=== PATIENT | female | born 1965 | race Caucasian/White ===

== ENCOUNTER 2021-11-26 06:10 | Observation (INO) ==
--- NOTE | 2021-10-16 10:49 | PAT Medication Instructions ---
Medication Instructions Date of Service October 16, 2021 Home Medications atorvastatin 10 mg tablet 10 mg PO QPM budesonide-formoterol HFA 160 mcg-4.5 mcg/actuation aerosol inhaler (Symbicort) 2 puffs INH BID bupropion HCl 200 mg tablet,12 hr sustained-release 200 mg PO QAM fenofibrate nanocrystallized 48 mg tablet 48 mg PO QAM levothyroxine 100 mcg capsule 100 mcg PO QAM metformin 500 mg tablet 250 mg PO BID montelukast 10 mg tablet 10 mg PO QPM oxybutynin chloride 5 mg tablet,extended release 24 hr 5 mg PO QAM pantoprazole 40 mg tablet,delayed release 40 mg PO QAM tiotropium bromide 1.25 mcg/actuation mist for inhalation (Spiriva Respimat) 2 puffs INH QAM ascorbic acid (vitamin C) 500 mg tablet (Vitamin C) 500 mg PO QAM biotin 1 mg capsule 1 mg PO QAM cholecalciferol (vitamin D3) 50 mcg (2,000 unit) capsule (Vitamin D3) 50 mcg PO QAM cyanocobalamin (vitamin B-12) 1,000 mcg capsule 1,000 mcg PO QAM gabapentin 300 mg capsule 300 mg PO TID interferon beta-1a 30 mcg/0.5 mL intramuscular pen injector (Avonex) 30 mcg IM WK zinc 50 mg capsule 50 mg PO QAM Continue as directed interferon beta-1a 30 mcg/0.5 mL intramuscular pen injector (Avonex) 30 mcg IM WK STOP taking 2 weeks before surgery biotin 1 mg capsule 1 mg PO QAM STOP taking 48 hours before surgery fenofibrate nanocrystallized 48 mg tablet 48 mg PO QAM DO NOT take the morning of surgery metformin 500 mg tablet 250 mg PO BID oxybutynin chloride 5 mg tablet,extended release 24 hr 5 mg PO QAM ascorbic acid (vitamin C) 500 mg tablet (Vitamin C) 500 mg PO QAM cholecalciferol (vitamin D3) 50 mcg (2,000 unit) capsule (Vitamin D3) 50 mcg PO QAM cyanocobalamin (vitamin B-12) 1,000 mcg capsule 1,000 mcg PO QAM zinc 50 mg capsule 50 mg PO QAM Take morning of surgery With a small sip of water, OTHERWISE NOTHING TO EAT OR DRINK AFTER MIDNIGHT: budesonide-formoterol HFA 160 mcg-4.5 mcg/actuation aerosol inhaler (Symbicort) 2 puffs INH BID bupropion HCl 200 mg tablet,12 hr sustained-release 200 mg PO QAM levothyroxine 100 mcg capsule 100 mcg PO QAM pantoprazole 40 mg tablet,delayed release 40 mg PO QAM tiotropium bromide 1.25 mcg/actuation mist for inhalation (Spiriva Respimat) 2 puffs INH QAM gabapentin 300 mg capsule 300 mg PO TID Take evening before surgery atorvastatin 10 mg tablet 10 mg PO QPM budesonide-formoterol HFA 160 mcg-4.5 mcg/actuation aerosol inhaler (Symbicort) 2 puffs INH BID metformin 500 mg tablet 250 mg PO BID montelukast 10 mg tablet 10 mg PO QPM gabapentin 300 mg capsule 300 mg PO TID Other Notes If you have any questions please call us at [phone] or [phone] or [phone] or [phone]
--- NOTE | 2021-10-19 12:33 | Anesthesiology Consultation ---
Date of Service October 19, 2021 Assessment & Plan (1) Encounter for pre-operative examination: - neurology pre-op clearance. - cervical levels planned for surgery. Message left for Emmy at Dr. Nova's office. - neurology office visit 01/06/2020 [place]: "...unclear if she received the full workup to rule out MS mimics given minimal disease seen on MRI brain and C-spine from 08/2019 that were reviewed in office today. She was diagnosed when she was 52 yo and denies ever having symptoms classic for MS such as optic neuritis, numbness/tingling in a single extremity or hemiparesis/hemianesthesia, no sensory level despite small spinal cord lesion. Her workup was completed initially for chronic neck/back pain and imaging findings were incidental, so unclear if she actually has (active) MS as one would expect a much more promin ent presentation in her age group with quick transition to SPMS or PPMS. - MELBA for lab results from prior LP and workup for MS mimics completed at [facility] [place] - continue tecfidera 240mg daily with aspirin 81mg daily to help with flushing for now while awaiting these results - will need CBC/CMP checked depending on when this was last done - discussed with her the importance of using cooling methods, energy conservation and non-pharmacological methods such as daily exercise to help with her fatigue. Could consider trial of provigil or amantadine in the future. Would also recommend that she works with her therapist on depression control as this is likely also contributing to her fatigue. - will check B12/TSH for ongoing fatigue and memory issues. Will check vitamin D 25OH to r/o deficiency (not currently on a vitamin D supplement despite MS diagnosis)... - will repeat MRI brain w/ and w/o, as well as MRI C-spine w/ and w/o in February 2020 to see if there has been any progression of disease - once we obtain the prior workup, will make sure she has been worked up for MS mimics and discuss that given her age (54yo) we can continue on DMT treatment vs discuss coming off at 56yo if no new lesions noted on imaging over the next 1.5 years - referral for formal neuropsych testing given ongoing memory issues # Neuropathy: noted to have stocking glove neuropathy symptoms on exam, most likely from known diabetes - will check A1c to determine her glucose control RTC in 3 months after repeat imaging and further outside records obtained..." - COVID screening: Per assessment on 10/19/2021: Travel screen negative, no known COVID-19 positive contacts or current COVID-19 related symptoms in past 2 weeks. Patient vaccinated. Surgeon arranging preop COVID testing, scheduled 11/22/2021. Awaiting results. Chart Review Chart Review: Pending: Refer to Additional Notes / Consult section and Patient seen in Pre Admission Testing Teaching & Discussion Pre-Anesthesia Teaching/Discussion Notes: Instructed NPO after midnight before surgery, except medications with 15 cc of water. Medication instructions provided according to the PAT guidelines. History Surgery Operation Date: 11/26/21 07:45 Proposed Procedures p Anterior Cervical Discectomy Fusion - Isaias Nova DO Height/Weight Height: 5 ft 6 in Weight: 97.1 kg Allergies Allergy/AdvReac Type Severity Reaction Status Date / Time duloxetine [From Cymbalta] AdvReac Unknown "FELT Verified 09/28/21 12:04 STRANGE" PAPER TAPE Allergy Severe HIVES Uncoded 09/28/21 12:04 Medications Home Medications Medication Instructions Recorded Confirmed Last Taken atorvastatin 10 mg tablet 10 mg PO QPM 01/06/20 09/28/21 Unknown budesonide-formoterol HFA 160 2 puffs INH BID 01/06/20 09/28/21 Unknown mcg-4.5 mcg/actuation aerosol inhaler (Symbicort) bupropion HCl 200 mg tablet,12 hr 200 mg PO QAM 01/06/20 09/28/21 Unknown sustained-release fenofibrate nanocrystallized 48 mg 48 mg PO QAM 01/06/20 09/28/21 Unknown tablet levothyroxine 100 mcg capsule 100 mcg PO QAM 01/06/20 09/28/21 Unknown metformin 500 mg tablet 250 mg PO BID tab 01/06/20 09/28/21 Unknown montelukast 10 mg tablet 10 mg PO QPM 01/06/20 09/28/21 Unknown oxybutynin chloride 5 mg 5 mg PO QAM 01/06/20 09/28/21 Unknown tablet,extended release 24 hr pantoprazole 40 mg tablet,delayed 40 mg PO QAM 01/06/20 09/28/21 Unknown release tiotropium bromide 1.25 2 puffs INH QAM 01/06/20 09/28/21 Unknown mcg/actuation mist for inhalation (Spiriva Respimat) ascorbic acid (vitamin C) 500 mg 500 mg PO QAM 09/28/21 09/28/21 Unknown tablet (Vitamin C) biotin 1 mg capsule 1 mg PO QAM 09/28/21 09/28/21 Unknown cholecalciferol (vitamin D3) 50 50 mcg PO QAM 09/28/21 09/28/21 Unknown mcg (2,000 unit) capsule (Vitamin D3) cyanocobalamin (vitamin B-12) 1,000 mcg PO QAM 09/28/21 09/28/21 Unknown 1,000 mcg capsule gabapentin 300 mg capsule 300 mg PO TID 09/28/21 09/28/21 Unknown interferon beta-1a 30 mcg/0.5 mL 30 mcg IM WK 09/28/21 09/28/21 Unknown intramuscular pen injector (Avonex) zinc 50 mg capsule 50 mg PO QAM 09/28/21 09/28/21 Unknown Past Medical History Medical History (Updated 10/22/21 @ 17:25 by Naomi Hess PA-C) Anxiety Asthma controlled, stable per pt, last rescue inhaler > 1 yr ago Chronic back pain Depression Diabetes mellitus, type 2 NIDDM Hiatal hernia Hyperlipidemia Hypothyroidism Migraine HX Multiple sclerosis F/U DR JAYLENE PARKER-stable per pt Urgency of urination Patient denies h/o stroke, seizures, heart attack, heart failure, HTN, blood clots or blood transfusions. Exercise / Class Metabolic Activity III < 4 Walking/Shop/Light housework (ambulates with cane, denies CP or SOB) Past Family History Family History Father Asthma Emphysema, unspecified Mother Cancer Grandmother (Maternal) Cancer Sister Thyroid cancer Past Surgical History Surgical History (Updated 10/19/21 @ 12:39 by Naomi Hess PA-C) History of colonoscopy 2017 History of esophagogastroduodenoscopy (EGD) History of foot surgery plantar fascitis S/P carpal tunnel release S/P section X 3 S/P hysterectomy S/P medial meniscal repair Past Anesthesia History No Hx of Anesthesia Complications and No Family Hx of Anesthesia Complications History of PONV No Hx of PONV and Hx of Motion Sickness STOP BANG Total 1 Social History Smoking Status: Never smoker Do You Dip or Chew Tobacco: No Hx Alcohol Use: Yes alcohol intake frequency: other Alcohol Intake Frequency Comment: occ Hx Substance Use: No Review of Systems Snoring, denies witnessed apneas. Sleep study negative for sleep apnea. Occasional reflux. Patient denies chest pain, shortness of breath, dyspnea on exertion, fever, chills, cough, wheezing, or palpitations. Physical Exam Vital Signs Vitals BP 110/68 P 89 TEMP 98.5 SP02 96% on RA RESP 17 Physical Full cervical extension range of motion without pain Full TMJ range of motion TMD 3.5 finger breaths Mallampati Score 3 Dentition: intact, several missing molars upper and lower bilat; denies chipped teeth, caps/crowns, implants or bridges Lungs: normal respiratory effort. Clear throughout to auscultation, no adventitious breath sounds Cardiac: regular rate and rhythm, no murmurs noted Carotid arteries: negative bruit bilat Extremities: no distal extremity edema Lab Results Anesthesia Preop Results Results Anesthesia Widget: WBC 9.57 K/uL (4.8-10.8) 10/19/21 Hgb 11.7 g/dL (12.0-16.0) L 10/19/21 Hct 36.7 % (37-47) L 10/19/21 Plt 418 K/uL (130-400) H 10/19/21 Na 142 mmol/L (136-145) 10/19/21 K 4.8 mmol/L (3.5-5.1) 10/19/21 Cl 107 mmol/L (98-107) 10/19/21 CO2 29 mmol/L (21-32) 10/19/21 BUN 17 mg/dl (6-23) 10/19/21 Creat 1.04 mg/dl (0.6-1.2) 10/19/21 Glucose Level 81 mg/dl (70-99(Fasting)) 10/19/21 PT 10.4 Seconds (9.0-12.0) 10/19/21 PTT 24.5 Seconds (21.0-31.0) 10/19/21 INR 1.0 (0.9-1.1) 10/19/21 Urine Color Yellow 10/19/21 Urine Appearance Clear (Clear) 10/19/21 Urine pH 7.0 (4.5-7.5) 10/19/21 Urine Specific [place] 1.009 (1.000-1.030) 10/19/21 Urine Protein Negative (Negative) 10/19/21 Urine Glucose (UA) Negative (Negative) 10/19/21 Urine Ketones Negative (Negative) 10/19/21 Urine Blood Negative (Negative) 10/19/21 Urine Nitrite Negative (Negative) 10/19/21 Urine Bilirubin Negative (Negative) 10/19/21 Urine Urobilinogen Negative (Negative) 10/19/21 Urine Leukocyte Esterase Negative (Negative) 10/19/21 Blood Type A Positive 10/19/21 Antibody Screen NEGATIVE 10/19/21 Testing Electrocardiogram Date: 10/19/21 Chest X-Ray Date: 10/19/21 FINDINGS: Cardiomediastinal and hilar silhouettes are within normal limits. No pneumothorax, pleural effusion, airspace consolidation or overt pulmonary edema. Bones appear grossly intact. IMPRESSION: No acute process.
[~2021-11-26 06:10] MED LIST: ACETAMINOPHEN 500 MG TAB PO SCH; CeleBREX 200 MG CAP PO SCH; GABAPENTIN 600 MG DOSE PO SCH; LR 15ML/HR IV SCH; ceFAZolin 2000MG 2,000 MG/15 ML SYR IV SCH
[2021-11-26] MEDS ORDERED: ceFAZolin 330 MG/ML 1 GM VIAL ONE (07:18)
[2021-11-26] MEDS ORDERED: PROPOFOL IV EMULSION 10 MG/ML 20 ML VIAL IV ONE ×2 (07:27→09:07)
[2021-11-26] MEDS ORDERED: LIDOCAINE 2% MPF LOCAL 5 ML VIAL INFIL ONE (07:27)
[2021-11-26] MEDS ORDERED: fentaNYL citrate 100 MCG/2 ML VIAL ONE (07:28)
--- NOTE | 2021-11-26 07:31 | History & Physical Bridge Note ---
Date of Service November 26, 2021 History & Physical Bridge Note I have examined the patient, reviewed the History & Physical and in the interval since the performance of the History & Physical I have noted the following changes of clinical significance: no changes noted
--- NOTE | 2021-11-26 07:32 | History & Physical Report ---
Date of Service November 26, 2021 Assessment & Plan (1) Cervical stenosis of spinal canal: Plan: C5-C7 anterior cervical discectomy and fusion History of Present Illness Chief Complaint: Neck and arm pain Primary Care Provider: Citlali Montano This is a 56-year-old female who presents with worsening neck and arm pain. Fa iling course of nonoperative care is here for urgent convention. Allergies Allergy/AdvReac Type Severity Reaction Status Date / Time duloxetine [From Cymbalta] AdvReac Unknown "FELT Verified 11/26/21 06:27 STRANGE" PAPER TAPE Allergy Severe HIVES Uncoded 11/22/21 07:57 Home Medications Medication Instructions Recorded Confirmed Type atorvastatin 10 mg tablet 10 mg PO QPM 01/06/20 11/26/21 History budesonide-formoterol HFA 160 2 puffs INH BID 01/06/20 11/26/21 History mcg-4.5 mcg/actuation aerosol inhaler (Symbicort) bupropion HCl 200 mg tablet,12 hr 200 mg PO QAM 01/06/20 11/26/21 History sustained-release (Wellbutrin SR) fenofibrate nanocrystallized 48 mg 48 mg PO QAM 01/06/20 11/26/21 History tablet (Tricor) levothyroxine 100 mcg capsule 100 mcg PO QAM 01/06/20 11/26/21 History (Tirosint) metformin 500 mg tablet 250 mg PO BID tab 01/06/20 11/26/21 History montelukast 10 mg tablet 10 mg PO QPM 01/06/20 11/26/21 History oxybutynin chloride 5 mg 5 mg PO QAM 01/06/20 11/26/21 History tablet,extended release 24 hr (Ditropan XL) pantoprazole 40 mg tablet,delayed 40 mg PO QAM 01/06/20 11/26/21 History release tiotropium bromide 1.25 2 puffs INH QAM 01/06/20 11/26/21 History mcg/actuation mist for inhalation (Spiriva Respimat) ascorbic acid (vitamin C) 500 mg 500 mg PO QAM 09/28/21 11/26/21 History tablet (Vitamin C) biotin 1 mg capsule 1 mg PO QAM 09/28/21 11/26/21 History cholecalciferol (vitamin D3) 50 50 mcg PO QAM 09/28/21 11/26/21 History mcg (2,000 unit) capsule (Vitamin D3) cyanocobalamin (vitamin B-12) 1,000 mcg PO QAM 09/28/21 11/26/21 History 1,000 mcg capsule gabapentin 300 mg capsule 300 mg PO TID 09/28/21 11/26/21 History interferon beta-1a 30 mcg/0.5 mL 30 mcg IM WK 09/28/21 11/26/21 History intramuscular pen injector (Avonex) zinc 50 mg capsule 50 mg PO QAM 09/28/21 11/26/21 History Past Med/Surg History Medical History (Updated 11/26/21 @ 07:32 by Isaias Nova DO) Anxiety Asthma controlled, stable per pt, last rescue inhaler > 1 yr ago Chronic back pain Depression Diabetes mellitus, type 2 NIDDM Hiatal hernia Hyperlipidemia Hypothyroidism Migraine HX Multiple sclerosis F/U DR JAYLENE PARKER-stable per pt Urgency of urination Surgical History History of colonoscopy 2017 History of esophagogastroduodenoscopy (EGD) History of foot surgery plantar fascitis S/P carpal tunnel release S/P section X 3 S/P hysterectomy S/P medial meniscal repair Family History Father Asthma Emphysema, unspecified Mother Cancer Grandmother (Maternal) Cancer Sister Thyroid cancer Social History Smoking Status: Never smoker Second Hand Exposure: No; Do You Dip or Chew Tobacco: No; Tobacco Cessation Education Requested by Patient: No Hx Alcohol Use: Yes Hx Substance Use: No Preferred Language: Mauritian Communication Ability: Effective Cellular [employer] Cutter Required: No Beliefs That Will Affect Care: None Current Living Situation: Spouse and Family current occupational status: employed current occupation: [employer] Other Information That Helps Us Care for You: No Feels Safe at Home: Yes Safety Concerns: Feels Safe At This Time Assistive Devices: Cane and Glasses Physical Exam Physical Exam: Patient is alert and oriented Heart regular in rhythm Lungs clear Results & Data ([facility]) Vital Signs (Past 12 Hours) Vital Signs Temp Pulse Resp BP Pulse Ox 11/26/21 06:46 37.0 C 100 H 18 128/84 95
[2021-11-26] MEDS ORDERED: DEXAMETHASONE SOD INJ 4 MG/ML VIAL ONE (08:17)
[2021-11-26] MEDS ORDERED: ROCURONIUM BROMIDE 10 MG/ML 5 ML VIAL IV ONE (08:17)
[2021-11-26] MEDS ORDERED: ONDANSETRON INJ 2 MG/ML 2 ML VIAL ONE ×2 (08:17→09:50)
[2021-11-26] MEDS ORDERED: FLOSEAL HEMOSTATIC MATRIX 10ML TOP ONE (08:24)
[2021-11-26] MEDS ORDERED: MoRPHine SULFATE PF 1 MG/ML 10 ML AMP/VIAL ONE (08:25)
[2021-11-26] MEDS ORDERED: NEOSTIGMINE METHYLSULFATE 1 MG/ML 10ML VIAL ONE (09:07)
[2021-11-26] MEDS ORDERED: LIDOCAINE 2% 2 ML VIAL/AMP(20MG/ML) INFIL ONE (09:07)
[2021-11-26] MEDS ORDERED: GLYCOPYRROLATE 0.2 MG/ML VIAL ONE ×2 (09:07→09:17)
--- NOTE | 2021-11-26 09:11 | Operative Report ---
Post Operative Report Pre & Post Diagnosis Operation Date: 11/26/21 07:45 Pre-Op Diagnosis: Cervical spinal stenosis with radiculopathy Post-Op Diagnosis: Seen I identified the patient and participated in the time-out.: Yes Procedure Operation Date: 11/26/21 07:45 Actual Procedures #1 anterior cervical discectomy with bilateral foraminotomies C5-C6 C6-C7. #2 anterior cervical arthrodesis C5-C6 C6-C7. #3 placement of Spira 6 mm cage filled with I factor at C5-C6 and 7 mm cage filled with I factor at C6-C7. #4 application 5 complete and screws from C5-C7. Surgeon Isaias Nova, DO Net C Developer Tejinder Shelley Estimated Blood Loss 10 Findings See Below The patient is 5 foot 6 inches tall weighing over 96 kg with a BMI in excess of 34. The patient's body habitus did contribute to significant technical difficulty required deeper retractors longer instruments as well as positioning. This at least 50% increased operative time. Specimens None Indications This is a 56-year-old female who presents with above-mentioned diagnosis after failing course of nonoperative care is here for surgical invention. Description of Procedure Patient was met with identified informed consent obtained. Patient was then taken to the operative suite underwent intubation placed in the supine position Thomas table with head in the [place] kettle operator head. All bony prominences well- padded eyes inspected to ensure no external pressure placed upon the. This point the anterior cervical spine was prepped and draped in normal sterile fashion. Incision was then placed along the right anterior aspect of the cervical spine overlying the C6 vertebral body. Blunt dissection with the assistance of bipolar cautery was performed down to and exposing the anterior cervical spine from C5-C7. Self-retaining retractors placed. Then performed a complete discectomy of C5-C6 out to the uncovertebral joints bilaterally. [place] distracting pins were utilized to assist in visualization. Removed all posterior annular fibers longitudinal ligament bilateral foraminotomies performed. The endplates were then burred to subcortical bleeding bone and a 6 mm spiral cage filled I factor tapped in position. Then proceeded to see 6 C7. Again complete discectomy performed out to the uncovertebral's bilaterally. [place] distracting pins again utilized. Removed all posterior annular fibers longitudinal ligament bilateral foraminotomies performed. A 7 mm spiral cage filled I factor tapped in position. Distracting apparatus was removed all anterior osteophytes produce with cortical surface and 5 complete and screws applied with the assistance of fluoroscopy. The incision was then copiously irrigated explored to ensure no damage to surrounding structures remaining bleeding. 10 round CHAD drain inserted. The incision was then closed with 2 Vicryl in a fashion of 4 Monocryl for final skin closure. Steri-Strip sterile dressings placed. Patient waken taken to PACU stable condition. Please note spinal cord monitoring was utilized at the procedure no changes noted. Lastly Tejinder Shelley was present out the entire surgery and while the patient positioning complex portions of the surgery and final skin closure. I attest to the content of the Intraoperative Record and any orders documented therein. Any exceptions are noted below.
[2021-11-26] MEDS ORDERED: ATROPINE SULFATE 0.1 MG/ML 10ML SYR IV PRN (09:38)
[2021-11-26] MEDS ORDERED: PROMETHAZINE HCL 6.25 MG in SODIUM CHLORIDE 0.9% 50 ML IV PRN (09:38)
[2021-11-26] MEDS ORDERED: HYDROmorphone INJ 2 MG/ML SYR/VIAL IV PRN (09:38)
[2021-11-26] MEDS ORDERED: ONDANSETRON INJ 2 MG/ML 2 ML VIAL IV PRN ×2 (09:38→10:52)
[2021-11-26] MEDS ORDERED: ePHEDrine sulfate 50 MG/ML AMP IV PRN (09:38)
--- NOTE | 2021-11-26 09:39 | Fluoroscopy Report ---
FL cervical 2-3V CLINICAL HISTORY: C5-C7 ACDF COMPARISON STUDY: MRI of the cervical spine September 06, 2019. FLUOROSCOPY TIME: 16 seconds. FLUOROSCOPIC IMAGES: FINDINGS: Fluoroscopy was provided during C5-C7 anterior discectomy and fusion. Surgical drain is in place. Endotracheal tube is partially imaged. IMPRESSION: Fluoroscopy provided during C5-C7 anterior discectomy and fusion. ACT 112: Negative or not required by law. Electronically signed by: Wilder Barakat M.D. 11/26/2021 9:37 AM
[2021-11-26] MEDS: fentaNYL citrate 100 MCG/2 ML VIAL IV PRN ×2 (10:00→10:20)
[2021-11-26] MEDS ORDERED: PROMETHAZINE HCL INJ 25 MG/ML 1 ML VIAL ONE (10:05)
[2021-11-26] MEDS ORDERED: SODIUM CHLORIDE 0.9% 50 ML BAG ONE (10:05)
[2021-11-26] MEDS ORDERED: NALOXONE HCL 0.4 MG/1 ML VIAL/CARP IV PRN (10:52)
[2021-11-26] MEDS ORDERED: HYDROmorphone INJ 0.5 MG/0.5 ML SYR IV PRN (10:52)
[2021-11-26] MEDS ORDERED: ONDANSETRON 4 MG OD TAB PO PRN (10:52)
[2021-11-26] MEDS ORDERED: diphenhydrAMINE Capsule 25 MG CAP PO PRN (10:52)
[2021-11-26] MEDS ORDERED: FAMOTIDINE 20 MG TAB PO PRN (10:52)
[2021-11-26] MEDS ORDERED: HYDROmorphone INJ 1 MG/ML SYRINGE IV PRN (10:52)
[2021-11-26] MEDS ORDERED: ALUMINUM/MAGNESIUM SUSP 30 ML UDC PO PRN (10:52)
[2021-11-26] MEDS ORDERED: MAGNESIUM HYDROXIDE SUSP 30 ML UDC PO PRN (10:52)
[2021-11-26] MEDS ORDERED: LORazepam 0.5 MG TAB PO PRN (10:52)
[2021-11-26] MEDS ORDERED: hydrOXYzine HCl 25 MG TAB PO PRN (10:52)
[2021-11-26] MEDS ORDERED: DO NOT ADMINISTER FLU VACCINE PRN (10:52)
[2021-11-26] MEDS ORDERED: PHARMACY GLYCEMIC MGMT CONSULT PRN (10:52)
[2021-11-26] MEDS ORDERED: SOD PHOSPHATE/SOD BIPHOSPHATE ENEMA 132 ML BTL PR PRN (10:52)
[2021-11-26] MEDS ORDERED: bisacodyL 10 MG SUPP PR PRN (10:52)
[2021-11-26] MEDS ORDERED: LORazepam 2 MG/1 ML VIAL IV PRN (10:52)
[2021-11-26] MEDS ORDERED: METOCLOPRAMIDE HCL INJ 5 MG/ML 2 ML VIAL IV PRN (10:52)
[2021-11-26] MEDS ORDERED: traMADol HCL 50 MG TABLET PO PRN (10:52)
[2021-11-26] MEDS ORDERED: ACETAMINOPHEN 1,000 MG/100 ML VIAL IV PRN (10:52)
[2021-11-26] MEDS ORDERED: PROMETHAZINE HCL 12.5 MG in SODIUM CHLORIDE 0.9% 50 ML IV PRN (10:52)
[2021-11-26] MEDS ORDERED: DO NOT ADMINISTER PNEUMOCOCCAL VACCINE PRN (10:52)
[2021-11-26] MEDS ORDERED: ACETAMINOPHEN 500 MG TAB PO PRN (10:52)
[2021-11-26] MEDS ORDERED: RACEPINEPHRINE 2.25% NEBU SOLN 0.5 ML VIAL INH PRN (11:07)
[2021-11-26] MEDS ORDERED: dexAMETHasone 8 MG in SYRINGE 0 ML IV PRN (11:07)
--- NOTE | 2021-11-26 11:09 | Hospitalist Consultation ---
Date of Consultation November 26, 2021 Assessment & Plan (1) Cervical stenosis of spinal canal: POD #0 - anterior cervical discectomy and fusion by Dr. Nova - Pain control, PT/OT, DVT prophylaxis per primary service - Encourage incentive spirometry - AM labs (2) Type 2 diabetes mellitus: Pharm has been consulted for glycemic management - consider A1c in AM since pt unsure when her last one was (3) Diabetic polyneuropathy: (4) Multiple sclerosis: (5) Asthma: (6) Anxiety with depression: Continue other home medications as appropriate. Pt seen and reviewed with collaborating physician, Dr. Sanchez. Plan of care discussed and as outlined above,. Thank you for this consultation. We will continue to follow the patient with you. A member of the [facility] Hospitalist Team is available 03/03 via [employer]. Please don't hesitate to reach out with questions. Salvador Underwood PA-C Supervising Physician Co-Signing Physician Notes I have seen and examined the patient at bedside. I have reviewed the chart and discussed the case with Tamiko WILKS. In summary, this is a 56 year old female with MS, asthma, DM-2 with neuropathy, cervical stenosis who underwent anterior cervical discectomy and fusion today by Dr Nova. Hospitalist service was consulted for medical management. Patient sitting comfortably in bed, on neck collar, fairly comfortable. States pain is coming back. Tolerated clears without issues. Denies nausea, vomiting, shortness of breath. AAO. Incision site clean with CHAD drain with serosanguineous output. Chest clear, heart sounds normal, abdomen benign, no edema. Surgical management including diet, pain management, activities and DVT prophylaxis per primary team. Glycemic pharmacist has been consulted by primary team for diabetes management. Chronic medical conditions stable. Rest as per note above. History of Present Illness Reason for Consultation: Post-operative medical management Requesting Physician: Dr. Isaias Nova Attending Physician: Isaias Nova, DO History of Present Illness This is a 56 y/o female with a PMH of multiple sclerosis, migraines, diabetes with polyneuropathy, asthma, anxiety, depression, and cervical stenosis who underwent anterior cervical discectomy and fusion today by Dr. Nova and for whom we have been consulted to assist with post-operative medical management. Pt is seen sitting up in bed. Reports overall her pain is controlled. She had some nausea initially in recovery but given anti-emetic with relief. No vomiting. Throat feels dry but denies chest pain, palpitations, shortness of breath, cough, KEYES or dizziness. Pt does not routinely check her blood sugars at home. She is unsure when her last A1c was but thinks that it was not that long ago and "they told me it was good." She has chronic polyneuropathy for which she is on gabapentin. She is unsure if any of the neurologic symptoms were related to the cervical stenosis. History of asthma that is well-controlled - cannot recall when she last needed her rescue inhaler. Allergies Allergy/AdvReac Type Severity Reaction Status Date / Time duloxetine [From Cymbalta] AdvReac Unknown "FELT Verified 11/26/21 06:27 STRANGE" PAPER TAPE Allergy Severe HIVES Uncoded 11/22/21 07:57 Home Medications Medication Instructions Recorded Confirmed Type atorvastatin 10 mg tablet 10 mg PO QPM 01/06/20 11/26/21 History budesonide-formoterol HFA 160 2 puffs INH BID 01/06/20 11/26/21 History mcg-4.5 mcg/actuation aerosol inhaler (Symbicort) bupropion HCl 200 mg tablet,12 hr 200 mg PO QAM 01/06/20 11/26/21 History sustained-release (Wellbutrin SR) fenofibrate nanocrystallized 48 mg 48 mg PO QAM 01/06/20 11/26/21 History tablet (Tricor) levothyroxine 100 mcg capsule 100 mcg PO QAM 01/06/20 11/26/21 History (Tirosint) metformin 500 mg tablet 250 mg PO BID tab 01/06/20 11/26/21 History montelukast 10 mg tablet 10 mg PO QPM 01/06/20 11/26/21 History oxybutynin chloride 5 mg 5 mg PO QAM 01/06/20 11/26/21 History tablet,extended release 24 hr (Ditropan XL) pantoprazole 40 mg tablet,delayed 40 mg PO QAM 01/06/20 11/26/21 History release tiotropium bromide 1.25 2 puffs INH QAM 01/06/20 11/26/21 History mcg/actuation mist for inhalation (Spiriva Respimat) ascorbic acid (vitamin C) 500 mg 500 mg PO QAM 09/28/21 11/26/21 History tablet (Vitamin C) biotin 1 mg capsule 1 mg PO QAM 09/28/21 11/26/21 History cholecalciferol (vitamin D3) 50 50 mcg PO QAM 09/28/21 11/26/21 History mcg (2,000 unit) capsule (Vitamin D3) cyanocobalamin (vitamin B-12) 1,000 mcg PO QAM 09/28/21 11/26/21 History 1,000 mcg capsule gabapentin 300 mg capsule 300 mg PO TID 09/28/21 11/26/21 History interferon beta-1a 30 mcg/0.5 mL 30 mcg IM WK 09/28/21 11/26/21 History intramuscular pen injector (Avonex) zinc 50 mg capsule 50 mg PO QAM 09/28/21 11/26/21 History Patient History Medical History Anxiety Asthma controlled, stable per pt, last rescue inhaler > 1 yr ago Chronic back pain Depression Diabetes mellitus, type 2 NIDDM Diabetic polyneuropathy Hiatal hernia Hyperlipidemia Hypothyroidism Migraine HX Multiple sclerosis F/U DR JAYLENE PARKER-stable per pt Urgency of urination Surgical History History of colonoscopy 2017 History of esophagogastroduodenoscopy (EGD) History of foot surgery plantar fascitis S/P carpal tunnel release S/P section X 3 S/P hysterectomy S/P medial meniscal repair Family History Father Asthma Emphysema, unspecified Mother Cancer Grandmother (Maternal) Cancer Sister Thyroid cancer Social History Smoking Status: Never smoker Second Hand Exposure: No; Do You Dip or Chew Tobacco: No; Tobacco Cessation Education Requested by Patient: No Hx Alcohol Use: Yes Hx Substance Use: No Preferred Language: Arabic Communication Ability: Effective [employer] Consultant Required: No Beliefs That Will Affect Care: None Current Living Situation: Spouse and Family current occupational status: employed current occupation: [employer] Other Information That Helps Us Care for You: No Feels Safe at Home: Yes Safety Concerns: Feels Safe At This Time Assistive Devices: Cane and Glasses Review of Systems Review of Systems: All systems reviewed & are unremarkable except as noted in HPI & below Constitutional: no fever, no chills, no sweats and no fatigue Eyes: no diplopia Ear, Nose, Mouth, Throat: no nasal congestion and no nasal discharge Respiratory: no cough, no dyspnea and no wheezing Cardiovascular: no chest pain, no dyspnea on exertion, no palpitations, no syncope and no edema Gastrointestinal: no abdominal pain, no nausea, no vomiting and no diarrhea/loose stools Genitourinary: no dysuria and no hematuria Musculoskeletal: + neck pain Integumentary: no rash and no yellowing of the skin Neurologic: as per Subjective / HPI Physical Exam Constitutional: well developed and well nourished; no acute distress Eyes: + anicteric sclerae Neck: dressing on anterior neck is C/D/I - drain in place with sanguinous drainage noted Respiratory: no respiratory distress and no labored breathing Auscultation: lungs clear to auscultation bilaterally; no rales, no rhonchi and no wheezes Cardiovascular: Rate/Rhythm: regular rate and regular rhythm Vessels: dorsalis pedis pulses present and radial pulses present Extremities: no edema Gastrointestinal (Abdomen): Inspection/Auscultation: normal bowel sounds; abdomen not distended Percussion/Palpation: abdomen soft; abdomen nontender Musculoskeletal: Head/Neck/Chest: normocephalic and head atraumatic Skin: no jaundice Neurologic: moves all extremities; no focal motor deficits Psychiatric: A+Ox3, euthymic affect Results & Data Results & Data ([facility]) Vital Signs (Past 12 Hours) Vital Signs Temp Pulse Pulse Resp BP Pulse Ox 11/26/21 10:30 108 H 14 150/91 H 96 11/26/21 10:20 36.4 C L 104 H 14 146/85 H 90 11/26/21 10:10 110 H 20 142/80 H 94 11/26/21 10:00 113 H 14 149/84 H 95 11/26/21 09:50 113 H 14 133/95 96 11/26/21 09:40 113 H 14 145/80 H 93 11/26/21 09:32 36.5 C 104 H 12 168/92 H 96 11/26/21 06:46 37.0 C 100 H 18 128/84 95 Laboratory Results 11/26/21 11/26/21 06:47 07:12 POC Glucose 104 H SARS-CoV-2, RNA, NAAT NEGATIVE Medications Administered Acetaminophen (Acetaminophen 500 Mg Tab) 1,000 mg PO PREOP CIARRA Stop: 11/26/21 18:00 Last Admin: 11/26/21 07:08 Dose: 1,000 mg Documented by: [id number] Celecoxib (Celebrex 200 Mg Cap) 200 mg PO PREOP CIARRA Stop: 11/26/21 18:00 Last Admin: 11/26/21 07:09 Dose: 200 mg Documented by: [id number] Fentanyl Citrate (Fentanyl Citrate 100 Mcg/2 Ml Vial) 50 mcg IV Q5M PRN PRN Reason: PACU Use Only-Pain Stop: 11/26/21 17:38 Last Admin: 11/26/21 10:20 Dose: 50 mcg Documented by: [id number] Admin: 11/26/21 10:00 Dose: 50 mcg Documented by: [id number] Gabapentin (Gabapentin 600 Mg Dose) 600 mg PO PREOP CIARRA Stop: 11/26/21 18:00 Last Admin: 11/26/21 07:08 Dose: 300 mg Documented by: [id number] Lactated Ringer's (Lr) 1,000 mls @ 15 mls/hr IV .Q24H CIARRA Stop: 11/27/21 05:59 Last Infusion: 11/26/21 07:39 Dose: 0 mls/hr Documented by: [id number] Admin: 11/26/21 07:09 Dose: 15 mls/hr Documented by: [id number] Cefazolin Sodium (Ancef 2000mg) 2,000 mg in 15 mls @ 3.75 mls/min IV PREOP CIARRA; Protocol Stop: 11/26/21 18:00 Last Admin: 11/26/21 08:00 Dose: 3.75 mls/min Documented by: [id number] Promethazine HCl 6.25 mg/ (Sodium Chloride) 50.25 mls @ 204 mls/hr IV ONCE PRN PRN Reason: PACU Use Only-Nausea/Vomiting Stop: 11/26/21 17:38 Last Admin: 11/26/21 10:06 Dose: 204 mls/hr Documented by: [id number] Ondansetron HCl (Ondansetron Inj 2 Mg/Ml 2 Ml Vial) 4 mg IV ONCE PRN PRN Reason: PACU Use Only-Nausea/Vomiting Stop: 11/26/21 17:38 Last Admin: 11/26/21 09:53 Dose: 4 mg Documented by: [id number] Discontinued Medications Cefazolin Sodium (Cefazolin 330 Mg/Ml 1 Gm Vial) Confirm Administered Dose 990 mg .ROUTE .STK-MED ONE Stop: 11/26/21 07:19 Last Admin: 11/26/21 08:24 Dose: 990 mg Documented by: [id number] Miscellaneous ( Floseal Hemostatic Matrix 10ml) 10 ml TOP ONCE ONE Stop: 11/26/21 08:25 Last Admin: 11/26/21 09:05 Dose: 10 ml Documented by: [id number] Promethazine HCl (Promethazine Hcl Inj 25 Mg/Ml 1 Ml Vial) Confirm Administered Dose 25 mg .ROUTE .STK-MED ONE Stop: 11/26/21 10:06 Last Admin: 11/26/21 10:07 Dose: Not Given Documented by: [id number] Sodium Chloride (Sodium Chloride 0.9% 50 Ml Bag) Confirm Administered Dose 50 ml .ROUTE .STK-MED ONE Stop: 11/26/21 10:06 Last Admin: 11/26/21 10:07 Dose: Not Given Documented by: [id number]
--- NOTE | 2021-11-26 11:26 | Anesthesiology Progress Note ---
Date of Service November 26, 2021 Anesthesia Post Procedure Vital Signs Vital Signs: Temp Pulse Pulse Resp BP Pulse Ox 11/26/21 11:18 100 H 20 98 11/26/21 10:30 108 H 14 150/91 H 96 11/26/21 10:20 36.4 C L 104 H 14 146/85 H 90 11/26/21 10:10 110 H 20 142/80 H 94 11/26/21 10:00 113 H 14 149/84 H 95 11/26/21 09:50 113 H 14 133/95 96 11/26/21 09:40 113 H 14 145/80 H 93 11/26/21 09:32 36.5 C 104 H 12 168/92 H 96 11/26/21 06:46 37.0 C 100 H 18 128/84 95 Pain Intensity Neck: Pain Intensity: 6 Transfer of Care Handoff Completed per policy Notes Mental Status: alert / awake / arousable Patient Amnestic to Procedure: Yes Nausea / Vomiting: adequately controlled Pain: adequately controlled Airway Patency, RR, SpO2: stable & adequate BP & HR: stable & adequate Hydration State: stable & adequate Anesthetic Complications: no major complications apparent
[2021-11-26] MEDS: SODIUM CHLORIDE 0.9% 1000ML 1,000 ML IV SCH ×2 (12:04→18:41)
[2021-11-26] MEDS ORDERED: INSULIN HUMAN NPH SC ONE (12:30)
[2021-11-26] MEDS ORDERED: GLUCAGON FOR INJ 1 MG VIAL IM PRN (12:30)
[2021-11-26] MEDS ORDERED: DEXTROSE 50% 50 ML SYRINGE IV PRN (12:30)
[2021-11-26] MEDS ORDERED: CARBOHYDRATES FOR HYPOGLYCEMIA PO PRN (12:30)
[2021-11-26] MEDS ORDERED: GLUCOSE 10 TABS/TUBE PO PRN (12:30)
[2021-11-26] MEDS ORDERED: GLUCOSE 40% GEL 15 GM TUBE PO PRN (12:30)
--- NOTE | 2021-11-26 12:36 | Pharmacy Report ---
Pharmacy Glycemic Short Note 2 - Date of Service November 26, 2021 - Glycemic Short BSG Results (Last 24 hours): 11/26/21 11/26/21 06:47 12:14 POC Glucose 104 H 128 H OUTPATIENT ANTIDIABETIC REGIMEN: * Metformin * HbA1c ordered for tomorrow ASSESSMENT: * 56 yo F with T2DM s/p spinal surgery today with dexamethasone overriden in OR * Will initiate NPH both for a faster onset of action and because likely to cont inue ongoing tomorrow AM due to pharmacokinetic profile that mimics the post- prandial elevations with ongoing dexamethasone qAM ordered * Will intitiate Novolog close to weight-based severe stress estimate PLAN FOR INPATIENT GLYCEMIC CONTROL: * Hold outpatient oral diabetes medication * Basal insulin * NPH 25 units SQ x1 now * Bolus insulin * NovoLog per scale ACHS or Q6hrs while NPO * Goal Range: Low 110 mg/dL - High 140 mg/dL * Correction Factor: 15 mg/dL/unit * Nutritional / Prandial insulin per carb ratio of 1 unit per 7 grams CHO consumed
[2021-11-26] MEDS: INSULIN ASPART PER UNIT SC SCH ×3 (13:21→20:55)
[2021-11-26] MEDS: ceFAZolin 2000MG 2,000 MG/15 ML SYR IV SCH ×2 (16:28→23:55)
[2021-11-26] MEDS: oxyCODONE HCL IR 5 MG TAB (IMMEDIATE RELEASE) PO PRN ×2 (16:39→21:50)
[2021-11-26] MEDS: GABAPENTIN 300 MG CAP PO SCH (20:52)
[2021-11-26] MEDS ORDERED: MONTELUKAST SODIUM 10 MG TABLET PO SCH (21:00)
[2021-11-26] MEDS ORDERED: ATORVASTATIN 10 MG TAB PO SCH (21:00)
[2021-11-26] MEDS ORDERED: DOCUSATE SODIUM/SENNA 50/8.6MG TAB PO SCH (21:00)
[2021-11-26] MEDS ORDERED: FLUTICASONE/VILANTEROL 200/25MCG 14 PUFFS/INHALER INH SCH (21:00)
[2021-11-27] MEDS: SODIUM CHLORIDE 0.9% 1000ML 1,000 ML IV SCH (01:07)
[2021-11-27] MEDS ORDERED: INSULIN ASPART PER UNIT SC ONE (02:00)
[2021-11-27] MEDS ORDERED: POLYETHYLENE (MIRALAX) 17 GM PACK PO SCH (06:00)
[2021-11-27] MEDS ORDERED: LEVOTHYROXINE SODIUM 100 MCG TABLET PO SCH (06:30)
[2021-11-27 06:39] LABS: Basophils # (auto) 0.02 K/uL (0-0.2); Basophils % (auto) 0.2 %; Eosinophils # (auto) 0.11 K/uL (0-0.5); Eosinophils % (auto) 1.2 %; Hematocrit (blood only) 31.7 % (37-47); Hemoglobin 9.7 g/dL (12.0-16.0); Immature Granulocytes # (auto) 0.04 K/uL (0.00-0.02); Immature Granulocytes % (auto) 0.4 %; Lymphocytes # (auto) 1.86 K/uL (1.2-3.4); Lymphocytes % (auto) 20.9 %; Mean Corpuscular Hemoglobin 24.7 pg (25-34); Mean Corpuscular Hgb Conc 30.6 g/dL (32-36); Mean Corpuscular Volume 80.7 fL (80-100); Mean Platelet Volume 9.8 fL (7.4-10.4); Monocytes # (auto) 0.91 K/uL (0.11-0.59); Monocytes % (auto) 10.2 %; Neutrophils # (auto) 5.98 K/uL (1.4-6.5); Neutrophils % (auto) 67.1 %; Platelet Count 306 K/uL (130-400); RDW Coefficient of Variation 16.8 % (11.5-14.5); Red Blood Count 3.93 M/uL (4.2-5.4); White Blood Count 8.92 K/uL (4.8-10.8)
[2021-11-27 06:57] LABS: BUN Creatinine Ratio 11.3 (10-20); Calcium 8.1 mg/dl (8.5-10.1); Creatinine Clr Calc Pharmacy 92.8 ml/min; Est GFR (African American) 96.2 ml/min; Potassium 4.1 mmol/L (3.5-5.1)
[2021-11-27 07:55] LABS: Estimated Average Glucose 128 mg/dl; Hemoglobin A1C 6.1 % (4.5-5.6)
[2021-11-27] MEDS: oxyCODONE HCL IR 5 MG TAB (IMMEDIATE RELEASE) PO PRN (08:11)
[2021-11-27] MEDS ORDERED: INSULIN HUMAN NPH SC SCH (09:00)
[2021-11-27] MEDS ORDERED: dexAMETHasone 6 MG in SYRINGE 0 ML IV SCH (09:00)
[2021-11-27] MEDS ORDERED: CHOLECALCIFEROL 1,000 UNITS 25 MCG TAB PO SCH (09:00)
[2021-11-27] MEDS ORDERED: ZINC SULFATE 220 MG CAPSULE PO SCH (09:00)
[2021-11-27] MEDS ORDERED: PANTOprazole 40 MG TAB PO SCH (09:00)
[2021-11-27] MEDS ORDERED: UMECLIDINIUM BROMIDE 62.5MCG/BLISTER 7 PUFFS/INHALER INH SCH (09:00)
[2021-11-27] MEDS ORDERED: OXYBUTYNIN CHLORIDE XL 5 MG TABCR PO SCH (09:00)
[2021-11-27] MEDS ORDERED: buPROPion SR 100 MG TABCR PO SCH (09:00)
[2021-11-27] MEDS ORDERED: CYANOCOBALAMIN (B-12) 500 MCG TABLET PO SCH (09:00)
[2021-11-27] MEDS ORDERED: NON-FORMULARY MEDICATION (Biotin 1 mg Capsule) PO SCH (09:00)
[2021-11-27] MEDS ORDERED: FENOFIBRATE NANOCRYSTALLIZED 48 MG TABLET PO SCH (09:00)
[2021-11-27] MEDS: INSULIN ASPART PER UNIT SC SCH (09:30)
--- NOTE | 2021-11-27 09:51 | Discharge Summary ---
Date of Service November 27, 2021 Admission HPI Per Admitting Provider This is a 56-year-old female who presents with worsening neck and arm pain. Failing course of nonoperative care is here for urgent convention. Principal Diagnosis Cervical radiculopathy Discharge Data Allergies Allergy/AdvReac Type Severity Reaction Status Date / Time duloxetine [From Cymbalta] AdvReac Unknown "FELT Verified 11/26/21 06:27 STRANGE" PAPER TAPE Allergy Severe HIVES Uncoded 11/22/21 07:57 Consultations 11/26/21 10:52 Consult Hospitalist Routine Procedures Performed Operation Date: 11/26/21 07:45 Actual Procedures p C5-C7 Anterior Cervical Discectomy and Fusion, Spinal Cord Monitoring(Not Applicable) - Isaias Nova DO Ordered Studies 11/26/21 [place] cervical 2-3V Routine Hospital Course (1) Cervical stenosis of spinal canal: Patient 1 anterior cervical discectomy and fusion tolerated this well stable orthopedic for postoperative. Postop day 1 her pain was improved. Swallowing well. No hoarseness. CHAD drain decreasing appropriately. Excellent strength testing. Separately discharged home. Discharge orders instructions from the chart for further review. Total Time Total Time Spent Total Time Spent (In Minutes): 20 minutes Discharge Plan Discharge Items Patient Disposition: Home - Self-Care Reason For Visit: Spinal Stenosis, Cervical Region Discharge Diagnosis: Cervical spinal stenosis with radiculopathy Activity: Per Instructions section Non-emergency contact: Primary Care Provider Call non-emergency contact if: you have any medication questions Follow-up/Referrals: Citlali Montano [Primary Care Provider] - Diet: Regular Addtl Attending Provider Instructions: ACTIVITY RECOMMENDATIONS: SELF CARE INSTRUCTIONS AFTER THORACIC/LUMBAR FUSIONS 1. You may walk to your tolerance. It is good exercise for your legs and back. Expect some back and intermittent leg aches and pains. 2. You may perform "counter-top" level activities (make a sandwich, phylicia with a project, etc.). 3. No bending or lifting of more than 10 pounds or back twisting of any nature (roll like a log when turning in bed). 4. You may ride in a car for 20-30 minutes at a time. No driving until after your first visit with your doctor. 5. Frequent changes of position and restricting sitting to 30 minutes at a time will help limit the amount of back spasms and stiffness you may experience. 6. You may discontinue the use of ambulatory aids (cane, crutches, etc.) once your strength and confidence allow. 7. You may holter scanning technician the shower and let water strike your incision when you arrive home at least once daily. Do not take a tub bath, sit in a hot tub or go into a swimming pool until after your first recheck in the office. SPECIAL CARE INSTRUCTIONS: VERY IMPORTANT TO READ AND REVIEW A. Your surgical incision has been closed with a cosmetic suture under the skin that will dissolve in about 6 weeks. In 14 days, you can use a pair of clean scissors and cut the suture that is left outside of the skin at the ends of your incision. 1. The small skin tapes can be removed 7 days after surgery if they have not fallen off by that point. 2. You may keep the wound open to air as much as possible to promote healing after post-op day number 5 unless told otherwise by your doctor. 3. If you think the wound looks like it is becoming infected (redness or worsening drainage) and/or you are experiencing fever, chill or worsening back pain and muscle spasms, contact the office so that we may evaluate you as soon as possible. B. Complications are uncommon, but please contact us if you have any signs or symptoms of: 1. wound infection (fever higher than 102.5 degrees F, redness, separation of wound, drainage, or increasing pain from the incision) 2. blood clots in legs (pain, swelling, redness and warmth in legs) 3. urinary tract infection (fever higher than 102.5 degrees F, burning upon urination or increased frequency of urination) 4. nerve problems (inability to walk on your toes or heels, numbness, loss of bowel or bladder control) 5. any other symptoms that concern you C. Please call the office at if you have any concerns or questions about your operation or recovery. D. No smoking! Smoking drastically decreases the chance of a solid fusion. E. Do not take any anti-inflammatory medications (Indocin, Advil, Motrin, Aspirin, Naprosyn, etc.) as these may inhibit the chance of a solid fusion. Tylenol is okay to take for pain. MANAGING PAIN AFTER SPINAL SURGERY 1. Narcotic medication is intended for short-term use and will be provided for surgical pain. Surgical pain usually lasts for a period of 4-6 weeks. Narcotic medication includes Percocet, Vicodin, Darvocet, Tylenol #3 or Lortab. 2. Longer-term pain is more appropriately treated with non-narcotic medication such as Tylenol ES. 3. Muscle spasm is not appropriately treated with narcotics. Muscle relaxers such as Soma, Flexeril or Skelaxin can be used along with Tylenol ES. 4. Remember that we all live with some "aches and pains". This is not unusual or uncommon after an injury or as we get older. a. Back pain is expected and may include muscle spasms for 4 to 6 weeks after surgery. The pain should gradually improve. If the pain worsens for no apparent reason, please contact the office. b. Intermittent leg pain may also be experienced and should not be concerned about unless it worsens for no apparent reason. If so, please contact the office. 5. We will provide appropriate medication within the normal guidelines of their prescribed use. We will also be very cautious and aware of potential abuse and extended duration of patients' medication needs. a. Pain medications are for your comfort and to assist with sleep and rest so that the tissue can heal. They are not provided in order to return to normal activity and should not be used through the day. To do so or worsening pain at night can result from ongoing tissue damage and development of tolerance to the prescribed medicine. 6. Please allow 2-3 days to process refills. Prescriptions will not be mailed but must be picked up at the office. FOLLOW UP VISIT: Keep your scheduled follow-up appointment. Any questions, please call the office at . Pending Studies at Discharge: No Stand-Alone Forms: [facility], Smoking Cessation Medications and DC Order Prescriptions: New tramadol 50 mg tablet 50 mg PO Q6H PRN (Reason: pain, moderate) Qty: 30 RF: 0 oxycodone 5 mg tablet 5 mg PO Q6H PRN (Reason: pain, severe) Qty: 30 RF: 0 Continued atorvastatin 10 mg tablet 10 mg PO QPM RF: 0 bupropion HCl [Wellbutrin SR] 200 mg tablet sustained-release 12 hr 200 mg PO QAM RF: 0 montelukast 10 mg tablet 10 mg PO QPM RF: 0 fenofibrate nanocrystallized [Tricor] 48 mg tablet 48 mg PO QAM RF: 0 levothyroxine [Tirosint] 100 mcg capsule 100 mcg PO QAM RF: 0 metformin 500 mg tablet 250 mg PO BID RF: 0 oxybutynin chloride [Ditropan XL] 5 mg tablet extended release 24hr 5 mg PO QAM RF: 0 pantoprazole 40 mg tablet,delayed release (DR/EC) 40 mg PO QAM RF: 0 budesonide-formoterol [Symbicort] 160-4.5 mcg/actuation HFA aerosol inhaler 2 puffs INH BID RF: 0 Spiriva Respimat 1.25 mcg/actuation mist 2 puffs INH QAM RF: 0 Avonex 30 mcg/0.5 mL Pen Injector 30 mcg IM WK RF: 0 gabapentin 300 mg Capsule 300 mg PO TID RF: 0 ascorbic acid (vitamin C) [Vitamin C] 500 mg Tablet 500 mg PO QAM RF: 0 zinc 50 mg Capsule 50 mg PO QAM RF: 0 cholecalciferol (vitamin D3) [Vitamin D3] 50 mcg (2,000 unit) Capsule 50 mcg PO QAM RF: 0 biotin 1 mg Capsule 1 mg PO QAM RF: 0 cyanocobalamin (vitamin B-12) 1,000 mcg Capsule 1,000 mcg PO QAM RF: 0 Discharge Orders: Discharge Order (Routine); Ordered 11/27/21 Ordered By: Isaias Pavon/Other Patient Handouts: Managing Type 2 Diabetes, Diabetes- Measuring Glucose at Home, Special Foot Care for Diabetes Admission Data Admit Date/Time: 11/26/21 09:14 Attending Provider: Isaias Nova Admit Provider: Isaias Nova Primary Care Provider: Citlali Montano Other Providers: Alec Sanchez
[2021-11-27] MEDS: GABAPENTIN 300 MG CAP PO SCH (10:34)
--- NOTE | 2021-11-27 13:23 | Hospitalist Progress Note ---
Date of Service November 27, 2021 Assessment & Plan (1) Cervical stenosis of spinal canal: Plan: POD #1 - anterior cervical discectomy and fusion by Dr. Nova Further management per primary team (2) Type 2 diabetes mellitus: Plan: continue home meds (3) Diabetic polyneuropathy: (4) Multiple sclerosis: (5) Asthma: Plan: continue inhalers (6) Anxiety with depression: Plan: continue home meds Admission and Anticipated Discharge Date Admission Date: November 26, 2021 Subjective She feels fine. Pain is controlled. Tolerating diet without issues. Voiding without issues. Passing gas. Says drain is coming out today and she is being discharged afterwards. Physical Exam Physical Exam: General: Lying comfortably in bed, not in distress, on room air HEENT: EOMI, RODOLFO, MMM. Dressing over neck incision and CHAD drain with serosanguineous output. Chest: Clear breath sounds bilaterally, no wheezes or crackles CVS: Regular rate and rhythm, normal heart sounds, no murmur Abdomen: Soft, non tender, not distended, normal bowel sounds Neuro: Awake, alert, oriented, conversing well, non focal Extremities: No cyanosis, clubbing or edema Results & Data Results & Data ([facility]) Vital Signs (Past 12 Hours) Vital Signs Temp Pulse Pulse Resp BP Pulse Ox 11/27/21 11:41 36.8 C 77 19 118/72 93 11/27/21 11:06 77 19 93 11/27/21 07:58 36.8 C 78 15 118/72 94 11/27/21 07:32 36.7 C 64 16 114/70 97 11/27/21 07:13 77 15 96 11/27/21 05:45 36.6 C 79 16 122/78 97 11/27/21 04:00 93 H 18 98 11/27/21 03:45 36.7 C 80 14 118/74 98 11/27/21 01:45 36.5 C 86 16 118/73 99 Laboratory Results Short CBC 11/27/21 Range/Units 05:24 WBC 8.92 (4.8-10.8) K/uL Hgb 9.7 L (12.0-16.0) g/dL Hct 31.7 L (37-47) % Plt Count 306 (130-400) K/uL BMP 11/27/21 05:24 Sodium 140 Potassium 4.1 Chloride 108 H Carbon Dioxide 28 BUN 9 Creatinine 0.80 Glucose 75 Calcium 8.1 L Medications Administered Current Inpatient Medications Acetaminophen (Acetaminophen 500 Mg Tab) 1,000 mg PO Q8H PRN PRN Reason: MILD Pain Scale 1,2,3 & Pre PT Stop: 12/26/21 10:51 Last Admin: 11/26/21 13:31 Dose: 1,000 mg Documented by: Al Hydrox/Mg Hydrox/Simethicone (Aluminum/Magnesium Susp 30 Ml Udc) 30 ml PO Q6H PRN PRN Reason: Dyspepsia Stop: 12/26/21 10:51 Atorvastatin Calcium (Atorvastatin 10 Mg Tab) 10 mg PO QPM [facility] Stop: 12/26/21 20:59 Last Admin: 11/26/21 20:52 Dose: 10 mg Documented by: Bisacodyl (Bisacodyl 10 Mg Supp) 10 mg DE DAILY PRN PRN Reason: Constipation Stop: 12/26/21 10:51 Bupropion HCl (Bupropion Sr 100 Mg Tabcr) 200 mg PO [facility] Stop: 12/27/21 08:59 Last Admin: 11/27/21 08:01 Dose: 200 mg Documented by: Cyanocobalamin (Cyanocobalamin (B-12) 500 Mcg Tablet) 1,000 mcg PO QA [facility] Stop: 12/27/21 08:59 Last Admin: 11/27/21 08:01 Dose: 1,000 mcg Documented by: Dextrose (Dextrose 50% 50 Ml Syringe) 25 - 50 ml IV UD PRN; Protocol PRN Reason: Hypoglycemia Protocol Stop: 12/26/21 12:29 Diphenhydramine HCl (Diphenhydramine Capsule 25 Mg Cap) 25 mg PO Q6H PRN PRN Reason: Allergic Rhinitis/Insomnia Stop: 12/26/21 10:51 Epinephrine (Racepinephrine 2.25% Nebu Soln 0.5 Ml Vial) 0.5 ml INH NOW PRN PRN Reason: If stridor present Famotidine (Famotidine 20 Mg Tab) 20 mg PO Q12H PRN PRN Reason: Dyspepsia Stop: 12/26/21 10:51 Fenofibrate (Fenofibrate Nanocrystallized 48 Mg Tablet) 48 mg PO QAM [facility] Stop: 12/27/21 08:59 Last Admin: 11/27/21 08:01 Dose: 48 mg Documented by: Fluticasone/Vilanterol (Fluticasone/Vilanterol 200/25mcg 14 Puffs/Inhaler) 1 puffs INH Q24H [facility] Stop: 12/26/21 20:59 Last Admin: 11/26/21 20:55 Dose: Not Given Documented by: Gabapentin (Gabapentin 300 Mg Cap) 300 mg PO TID [facility] Stop: 12/26/21 13:59 Last Admin: 11/27/21 10:34 Dose: Not Given Documented by: Glucagon (Glucagon For Inj 1 Mg Vial) 1 mg IM UD PRN; Protocol PRN Reason: Hypoglycemia Protocol Stop: 12/26/21 12:29 Glucose (Glucose 40% Gel 15 Gm Tube) 15 - 30 gm PO UD PRN; Protocol PRN Reason: Hypoglycemia Protocol Stop: 12/26/21 12:29 Glucose (Glucose 10 Tabs/Tube) 4 - 8 tabs PO UD PRN; Protocol PRN Reason: Hypoglycemia Protocol Stop: 12/26/21 12:29 Hydromorphone HCl (Hydromorphone Inj 0.5 Mg/0.5 Ml Syr) 0.5 mg IV Q3H PRN PRN Reason: MOD pain (scale 4-6) & Pre PT Stop: 12/10/21 10:51 Hydromorphone HCl (Hydromorphone Inj 1 Mg/Ml Syringe) 1 mg IV Q3H PRN PRN Reason: severe pain (scale 7-10) Stop: 12/10/21 10:51 Hydroxyzine HCl (Hydroxyzine Hcl 25 Mg Tab) 25 mg PO Q8H PRN PRN Reason: Anxiety Stop: 12/26/21 10:51 Dexamethasone 8 mg/ Syringe 2 mls @ 1 mls/min IV NOW PRN PRN Reason: If stridor present Promethazine HCl 12.5 mg/ (Sodium Chloride) 50.5 mls @ 202 mls/hr IV Q6H PRN PRN Reason: Nausea &/or Vomiting Stop: 12/26/21 10:51 Acetaminophen (Ofirmev) 1,000 mg in 100 mls @ 400 mls/hr IV Q8H PRN PRN Reason: Pain Rating 1-3 & Pre PT Stop: 11/29/21 10:51 Dexamethasone 6 mg/ Syringe 1.5 mls @ 1 mls/min IV DAILY [facility] Stop: 11/29/21 09:02 Last Admin: 11/27/21 08:02 Dose: 1 mls/min Documented by: Influenza Virus Vaccine Quadrival (Do Not Administer Flu Vaccine) 1 ea N/A PRN PRN PRN Reason: Notification Stop: 12/26/21 10:51 Insulin Aspart (Insulin Aspart Per Unit) 0 units SC ACHS [facility]; Protocol Stop: 12/26/21 12:29 Last Admin: 11/27/21 09:30 Dose: 9 units Documented by: Insulin Human NPH (Insulin Human Nph) 20 units SC DAILY [facility]; Protocol Stop: 11/29/21 09:01 Last Admin: 11/27/21 09:25 Dose: 20 units Documented by: Levothyroxine Sodium (Levothyroxine Sodium 100 Mcg Tablet) 100 mcg PO DAILYBB [facility] Stop: 12/27/21 06:29 Last Admin: 11/27/21 05:43 Dose: 100 mcg Documented by: Lorazepam (Lorazepam 0.5 Mg Tab) 0.5 mg PO Q8H PRN PRN Reason: Sedation/Anxiety Stop: 12/26/21 10:51 Lorazepam (Lorazepam 2 Mg/1 Ml Vial) 0.5 mg IV Q8H PRN PRN Reason: Sedation/Anxiety Stop: 12/26/21 10:51 Magnesium Hydroxide (Magnesium Hydroxide Susp 30 Ml Udc) 30 ml PO Q24H PRN PRN Reason: Constipation Stop: 12/26/21 10:51 Metoclopramide HCl (Metoclopramide Hcl Inj 5 Mg/Ml 2 Ml Vial) 10 mg IV Q6H PRN PRN Reason: Nausea &/or Vomiting Stop: 12/26/21 10:51 Miscellaneous (Carbohydrates For Hypoglycemia ) 15 - 30 gm PO UD PRN PRN Reason: Hypoglycemia Treatment Stop: 12/26/21 12:29 Miscellaneous Information (Pharmacy Glycemic Mgmt Consult) 1 ea N/A UD PRN PRN Reason: Consult Stop: 12/26/21 10:51 Montelukast Sodium (Montelukast Sodium 10 Mg Tablet) 10 mg PO QPM [facility] Stop: 12/26/21 20:59 Last Admin: 11/26/21 20:52 Dose: 10 mg Documented by: Naloxone HCl (Naloxone Hcl 0.4 Mg/1 Ml Vial/Carp) 0.1 mg IV Q5M PRN PRN Reason: Oversedation/Resp depression Stop: 12/26/21 10:51 Ondansetron HCl (Ondansetron Inj 2 Mg/Ml 2 Ml Vial) 4 mg IV Q6H PRN PRN Reason: Nausea &/or Vomiting Stop: 12/26/21 10:51 Ondansetron HCl (Ondansetron 4 Mg Od Tab) 4 mg PO Q6H PRN PRN Reason: Nausea Stop: 12/26/21 10:51 Oxybutynin Chloride (Oxybutynin Chloride Xl 5 Mg Tabcr) 5 mg PO QAM [facility] Stop: 12/27/21 08:59 Last Admin: 11/27/21 08:02 Dose: 5 mg Documented by: Oxycodone HCl (Oxycodone Hcl Ir 5 Mg Tab (Immediate Release)) 5 - 10 mg PO Q4H PRN PRN Reason: Pain & Pre PT Stop: 12/10/21 10:51 Last Admin: 11/27/21 08:11 Dose: 10 mg Documented by: Pantoprazole Sodium (Pantoprazole 40 Mg Tab) 40 mg PO QAM [facility] Stop: 12/27/21 08:59 Last Admin: 11/27/21 08:01 Dose: 40 mg Documented by: Pneumococcal Polyvalent Vaccine (Do Not Administer Pneumococcal Vaccine) 1 ea N/A PRN PRN PRN Reason: Notification Stop: 12/26/21 10:51 Polyethylene Glycol (Polyethylene (Miralax) 17 Gm Pack) 17 gm PO Q6 [facility] Stop: 12/27/21 05:59 Last Admin: 11/27/21 05:43 Dose: 17 gm Documented by: Senna/Docusate Sodium (Docusate Sodium/Senna 50/8.6mg Tab) 2 tab PO HS [facility] Stop: 12/26/21 20:59 Last Admin: 11/26/21 20:52 Dose: 2 tab Documented by: Sodium Biphosphate/Sodium Phosphate (Sod Phosphate/Sod Biphosphate Enema 132 Ml Btl) 132 ml DE ONE PRN PRN Reason: Constipation Stop: 12/26/21 10:51 Tramadol HCl (Tramadol Hcl 50 Mg Tablet) 50 - 100 mg PO Q4H PRN PRN Reason: Moderate-Severe pain & Pre PT Stop: 12/26/21 10:51 Umeclidinium Revelo (Umeclidinium Revelo 62.5mcg/Blister 7 Puffs/Inhaler) 1 puffs INH [facility] Stop: 12/27/21 08:59 Last Admin: 11/27/21 08:01 Dose: 1 puffs Documented by: Vitamin D (Cholecalciferol 1,000 Units 25 Mcg Tab) 2,000 units PO [facility] Stop: 12/27/21 08:59 Last Admin: 11/27/21 08:02 Dose: 2,000 units Documented by: Zinc Sulfate (Zinc Sulfate 220 Mg Capsule) 220 mg PO [facility] Stop: 12/27/21 08:59 Last Admin: 11/27/21 08:01 Dose: 220 mg Documented by:
== END 2021-11-27 13:57 | disposition home or self-care (01) ==
LOC: ASU 06:10 → INTOOBSV 09:14 → 3E 09:14